=== PATIENT | male | born 1990 | race Caucasian/White ===

== ENCOUNTER 2018-10-27 22:14 | Emergency (ER) | payer OTHER ==
[2018-10-27 22:45] VITALS: BP 115/80
--- NOTE | 2018-10-27 22:45 | EDPHY ---
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 Patient denies any preceding symptoms. He has been in his usual state of health. No fevers or chills. No chest pain. No palpitations. No cough. No nausea or vomiting. Worse when he stands up. Does not have a spinning sensation. No history of similar episodes in the past. Last ate at 4:00 p.m. this afternoon. No family history of coronary artery disease or sudden cardiac . ROS: 10 systems were reviewed and were negative except those elements noted in the HPI. PMH: Denies Social History: No smoking, no alcohol, no recreational drug use Family History: non-contributory Physical Exam: Gen: Awake, Alert, No Distress HEENT: Nose: no rhinorrhea Eyes: PERRLA, EOMI Mouth: Moist mucosa Neck: Supple, no JVD Chest: nontender, lungs clear to auscultation Heart: S1, S2 normal, no murmur Abd: Soft, non-tender, no guarding Back: no CVA tenderness, no midline tenderness Ext: no edema, non-tender Skin: no rash Neuro: CN II-XII intact, Sensation grossly intact, Strength 5/5 in bilateral upper and lower extremities - Personal History Current Tetanus/Diphtheria Vaccine: Yes Current Tetanus Diphtheria and Acellular Pertussis (TDAP): Yes Tetanus Vaccine Date: last 10 years - Medical/Surgical History Hx Asthma: No Hx Chronic Respiratory Disease: No Hx Diabetes: No Hx Cardiac Disease: No Hx Renal Disease: No Hx Cirrhosis: No Hx Alcoholism: No Hx HIV/AIDS: No Hx Splenectomy or Spleen Trauma: No Other PMH: no medical history per pt - Social History Smoking Status: Never smoked Constitutional: Initial Vital Signs Temperature (C) 36.4 C 10/27/18 22:18 Heart Rate 84 10/27/18 22:18 Respiratory Rate 16 10/27/18 22:18 Blood Pressure 123/84 H 10/27/18 22:18 O2 Sat (%) 97 10/27/18 22:18 O2 Delivery Mode Room Air Allergies/Adverse Reactions: No Known Allergies Allergy (Unverified 10/27/18 22:20) Home Medications: Medication Instructions Recorded Allergy 10/27/18 Medical Decision Making - Diagnostics EKG Interpretation: ECG time 10:34 p.m., sinus rhythm with a rate of 70, normal axis, normal intervals, no acute ST or T-wave changes. Impression: Normal ECG. ED Course/Re-evaluation: Healthy 20-year-old male with episode of lightheadedness. Symptoms likely secondary to hypoglycemia. Fingerstick blood sugar here is 70. ECG is normal. Has normal orthostatic vital signs. He is afebrile. He is not tachycardic. Blood pressure is normal. Patient has been reassured. Will discharge home with follow-up with primary care physician. He has a normal neurologic exam. - Data Points Laboratory Results: 10/27/18 22:34 POC Glucose 70 mg/dL mg/dL (70-100) Point of Care Test Results: Chemistry 10/27/18 22:34 POC Glucose 70 mg/dL mg/dL (70-100) Departure - Departure Disposition: Home, Routine, Self-Care Clinical Impression: Lightheaded Condition: Good Instructions: Lightheadedness (ED) Additional Instructions: Make sure you drink plenty of fluids and eat regularly. Follow up with primary care physician in 2-3 days for further evaluation. Return to the emergency department for worsening dizziness, fainting, chest pain , shortness of breath, fevers, or any other concerns. Referrals: NONE *PRIMARY CARE P,. [Primary Care Provider] - As per Instructions
--- NOTE | 2018-10-28 02:35 | CPEKG ---
Test Reason : OPEN Blood Pressure : / mmHG Vent. Rate : 070 BPM Atrial Rate : 069 BPM P-R Int : 135 ms QRS Dur : 078 ms QT Int : 380 ms P-R-T Axes : 066 071 042 degrees QTc Int : [address] elev, probable normal early repol pattern Confirmed by Wilberto Chris ([id number] on 10/28/2018 2:35:04 AM Referred By: Wilberto Chris Confirmed By:Wilberto Chris
== END 2018-10-27 23:24 | disposition home or self-care (01) ==
DX: R42 Dizziness and giddiness (principal)